=== PATIENT | female | born 1960 | race American Indian/Alaskan Native ===

== ENCOUNTER 2019-02-15 14:39 | Emergency (ER) | payer BC ==
--- NOTE | 2019-02-15 15:33 | Event Note ---
ED Screening Note ED Screening Note: pt presents [facility]/o left knee pain never injured before PMHx panic attacks This initial assessment/diagnostic orders/clinical plan/treatment(s) is/are subject to change based on patients health status, clinical progression and re- assessment by fellow clinical providers in the ED. Further treatment and workup at subsequent clinical providers discretion. Patient/guardian urged not to elope from the ED as their condition may be serious if not clinically assessed and managed. Initial orders include: XR of the left knee
--- NOTE | 2019-02-15 16:21 | XRay Report ---
LEFT KNEE, 4 VIEWS INDICATION: Left knee pain, slip and fall at [employer] today. COMPARISON: None. IMPRESSION: No acute osseous or soft tissue abnormality. No significant DJD. Signer Name: Freeman Abdi Jr, MD Signed: 02/15/2019 4:17 PM Workstation Name: [id number]
[2019-02-15] MEDS ORDERED: ZOFRAN ODT PO ONE (19:58)
[2019-02-15] MEDS ORDERED: IBUPROFEN PO ONE (19:58)
[2019-02-15] MEDS ORDERED: TYLENOL PO ONE (19:58)
[2019-02-15 20:32] VITALS: BP 149/84
--- NOTE | 2019-02-15 21:03 | Emergency Department Report ---
ED Fall HPI - General Chief Complaint: Fall Stated Complaint: FALL/L KNEE PAIN Time Seen by Provider: 02/15/19 15:31 Source: patient Mode of arrival: Wheelchair - History of Present Illness Initial Comments: Patient is a 58-year-old -[place] female with no past medical history except kidney attacks and anxiety who presents to the ED with complaint of acute onset severe left knee pain after she slipped on the right floor at a grocery store and fell down landing on her left knee. Patient states that the pain is worse with any activity range of motion or bearing weight on the left leg. Patient denies hip pain, back pain, neck pain, head injury, nausea, vomiting, numbness and tingling of lower and upper extremities bilaterally, syncope, seizures, dizziness, chest pain or shortness of breath and loss of consciousness. MD Complaint: fall -: Sudden, hour(s) (8) Fall From: standing When Fall Occurred: 4-[address] Fall Occurred: other (grocery stone) Loss of Consciousness: none Prolonged Down Time?: no Symptoms Prior to Fall: none Location: other (left knee) Location - Extremities: Left: Knee (painful) - Related Data Previous Rx's Medication Instructions Recorded Last Taken Type Ibuprofen [Motrin] 600 mg PO Q8H PRN #20 tablet 02/15/19 Unknown Rx tiZANidine [Zanaflex 4mg TAB] 4 mg PO Q8H PRN #15 tablet 02/15/19 Unknown Rx traMADol [Ultram] 50 mg PO Q6HR PRN #15 tablet 02/15/19 Unknown Rx Allergies Allergy/AdvReac Type Severity Reaction Status Date / Time shellfish derived Allergy Rash Verified 02/15/19 14:48 ED Review of Systems ROS: Stated complaint: FALL/L KNEE PAIN Other details as noted in HPI Constitutional: denies: chills, fever Eyes: denies: eye pain, eye discharge, vision change ENT: denies: ear pain, throat pain Respiratory: denies: cough, shortness of breath, wheezing Cardiovascular: denies: chest pain, palpitations Endocrine: no symptoms reported Gastrointestinal: denies: abdominal pain, nausea, diarrhea Genitourinary: denies: urgency, dysuria, discharge Musculoskeletal: arthralgia (left knee pain), myalgia. denies: back pain, joint swelling Skin: denies: rash, lesions Neurological: denies: headache, weakness, paresthesias Psychiatric: denies: anxiety, depression Hematological/Lymphatic: denies: easy bleeding, easy bruising ED Past Medical Hx - Past Medical History Hx Psychiatric Treatment: Yes (panic attacks) - Surgical History Past Surgical History?: No - Social History Smoking Status: Never Smoker Substance Use Type: Alcohol - Medications Home Medications: Home Medications Medication Instructions Recorded Confirmed Last Taken Type Ibuprofen [Motrin] 600 mg PO Q8H PRN #20 tablet 02/15/19 Unknown Rx tiZANidine [Zanaflex 4mg TAB] 4 mg PO Q8H PRN #15 tablet 02/15/19 Unknown Rx traMADol [Ultram] 50 mg PO Q6HR PRN #15 tablet 02/15/19 Unknown Rx ED Physical Exam - General Limitations: No Limitations General appearance: alert, in no apparent distress - Head Head exam: Present: atraumatic, normocephalic, normal inspection - Eye Eye exam: Present: normal appearance, PERRL, EOMI Pupils: Present: normal accommodation - ENT ENT exam: Present: normal exam, normal orophraynx, mucous membranes moist, TM's normal bilaterally, normal external ear exam - Neck Neck exam: Present: normal inspection, full ROM - Respiratory Respiratory exam: Present: normal lung sounds bilaterally. Absent: respiratory distress, wheezes, rales, rhonchi, stridor, chest wall tenderness, accessory muscle use, decreased breath sounds, prolonged expiratory - Cardiovascular Cardiovascular Exam: Present: regular rate, normal rhythm, normal heart sounds. Absent: systolic murmur, diastolic murmur, rubs, gallop - GI/Abdominal GI/Abdominal exam: Present: soft, normal bowel sounds. Absent: distended, tenderness, guarding, rebound, hyperactive bowel sounds, hypoactive bowel sounds, organomegaly - Rectal Rectal exam: Present: deferred - Extremities Exam Extremities exam: Present: normal inspection, full ROM, tenderness (left knee ), normal capillary refill. Absent: pedal edema, joint swelling - Back Exam Back exam: Present: normal inspection, full ROM. Absent: tenderness, CVA tenderness (R), CVA tenderness (L), muscle spasm, paraspinal tenderness, vertebral tenderness - Neurological Exam Neurological exam: Present: alert, oriented X3, CN II-XII intact, normal gait, reflexes normal - Psychiatric Psychiatric exam: Present: normal affect, normal mood - Skin Skin exam: Present: warm, dry, intact, normal color. Absent: rash ED Course Vital Signs 02/15/19 02/15/19 15:32 20:31 Temperature 98.2 F 98.2 F Pulse Rate 52 L 52 L Respiratory 16 18 Rate Blood Pressure 144/85 Blood Pressure 149/84 [Left] O2 Sat by Pulse 99 98 Oximetry - Reevaluation(s) Reevaluation #1: 02/15/19 21:06 Patient is alert and oriented 3 and is not in any distress. Patient was treated for pain in the ED and left knee x-ray shows no acute fractures or subluxations. On reevaluation, patient's pain is well controlled on the left knee was splinted his And patient decided home on medications and muscle relaxants, and advised to follow-up with her primary care physician in 7-10 days for reevaluation. Patient advised to return to the ED immediately if symptoms get worse. ED Medical Decision Making - Radiology Data Radiology results: report reviewed, image reviewed The left knee x-ray shows no acute fractures or subluxations. - Medical Decision Making Patient is alert and oriented 3 and is not in any distress. Patient was treated for pain in the ED and left knee x-ray shows no acute fractures or subluxations. On reevaluation, patient's pain is well controlled on the left knee was splinted his And patient decided home on medications and muscle relaxants, and advised to follow-up with her primary care physician in 7-10 days for reevaluation. Patient advised to return to the ED immediately if symptoms get worse. - Differential Diagnosis left knee fracture; Left knee sprain, muscle strain of left leg Critical care attestation.: If time is entered above; I have spent that time in minutes in the direct care of this critically ill patient, excluding procedure time. ED Disposition Clinical Impression: Sprain of left knee Qualifiers: Encounter type: initial encounter Involved ligament of knee: unspecified ligament Qualified Code(s): S83.92XA - Sprain of unspecified site of left knee, initial encounter Contusion of left lower leg Qualifiers: Encounter type: initial encounter Qualified Code(s): S80.12XA - Contusion of left lower leg, initial encounter Disposition: TO HOME OR SELFCARE Is pt being admited?: No Does the pt Need Aspirin: No Condition: Stable Instructions: Knee Sprain (ED), Muscle Strain (ED) Additional Instructions: Take medications with food, drink plenty of fluids and follow-up with your primary care physician in 7-10 days for reevaluation. Return to ED immediately if symptoms get worse. Prescriptions: Ibuprofen [Motrin] 600 mg PO Q8H PRN #20 tablet PRN Reason: Pain traMADol [Ultram] 50 mg PO Q6HR PRN #15 tablet PRN Reason: Pain tiZANidine [Zanaflex 4mg TAB] 4 mg PO Q8H PRN #15 tablet PRN Reason: Pain , Severe (7-10) Referrals: ARELY MARTINEZ [Primary Care Provider] - 3-5 Days Time of Disposition: 20:57 Print Language: TUVAL[place]
== END 2019-02-15 21:17 | disposition home or self-care (01) ==
LOC: ED 14:39
DX: S83.92XA Sprain of unspecified site of left knee, initial encounter (principal); S80.12XA Contusion of left lower leg, initial encounter; W01.0XXA Fall on same level from slipping, tripping and stumbling without subsequent striking against object, initial encounter; Y93.89 Activity, other specified; Y92.89 Other specified places as the place of occurrence of the external cause; Y99.8 Other external cause status
CPT/HCPCS: Q0162